=== PATIENT | female | born 1950 | race Caucasian/White ===

== ENCOUNTER 2016-07-17 07:17 | Day surgery (SDC) | payer MEDICARE, OTHER ==
[~2016-07-17] VITALS: Ht 165.1 cm; Wt 89.3 kg
--- NOTE | 2016-07-26 19:20 | OR ---
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 FINAL PATHOLOGY: Pending. PROCEDURE: Left needle localized and excisional lumpectomy. PHYSICIAN OFFICE SECRETARY: ERMELINDA Contreras who was necessary for adequate exposure, retraction, and completion of this case. ANESTHESIA: General anesthesia. ESTIMATED BLOOD LOSS: 10 mL. SPECIMEN: To Radiology then to path. INDICATION FOR PROCEDURE: Please see my H and P. I did inject some 0.5% Marcaine for pain control. PROCEDURE IN DETAIL: After the risks, benefits, possible complications, and the alternatives have been explained, and informed consent had been obtained, the patient was taken back to the operating room. She had already had a wire localization placed earlier per Radiology. The surgical field was prepped and draped in a sterile manner. An incision was made between the areola and this guidewire down through skin and subcutaneous tissue, brought the wire through the skin and then circumferentially dissected around this wire including the entire tip feeling I took an adequate specimen to hopefully get rid of everything in question. That was then sent to Radiology. I maintained hemostasis. Irrigated out with some sterile water. Injected some 0.5% Marcaine and closed with 3-0 Vicryl and 4-0 Monocryl. She tolerated it well. She was being extubated when I left the room. She was in stable and satisfactory condition with all needle and lap counts correct x2. aJson Walker MD/ monet JOB #: [id number] CC: Jason Walker, Attending Physician Gama Rodrigues, Family Physician
== END 2016-07-17 16:15 | disposition home or self-care (01) ==
LOC: SSS 07:17 → RAD.S 10:00 → EDSTATUS 10:00 → SSS 16:15
PROC: 0HBU0ZZ Excision of Left Breast, Open Approach (ICD-10-PCS; principal; 2016-07-17)
DX: N60.92 Unspecified benign mammary dysplasia of left breast (principal); Z90.710 Acquired absence of both cervix and uterus; Z79.899 Other long term (current) drug therapy; Z90.49 Acquired absence of other specified parts of digestive tract